=== PATIENT | female | born 2000 | race American Indian/Alaskan Native ===

== ENCOUNTER 2020-08-21 16:39 | Inpatient (IN) | payer MEDICAID ==
[2020-08-21 18:50] LABS: Bilirubin,Urine NEG (Negative); Blood,Urine NEG (Negative); Color,Urine Straw (Yellow); Mucus,Urine FEW /HPF; Protein,Urine <15 mg/dL mg/dL (Negative); RBC,Urine < 1.0 /HPF (0.0-6.0); WBC,Urine < 1.0 /HPF (0.0-6.0)
[2020-08-21 21:10] LABS: Hematocrit 36.3 % (30.3-42.9); Hemoglobin 12.3 gm/dl (10.1-14.3); Mean Corpuscular HGB Conc 34 % (30-34); Mean Corpuscular Volume 86 fl (79-97); Platelet Count 251 K/mm3 (140-440); Red Blood Count 4.23 M/mm3 (3.65-5.03); Red Cell Distribution Width 16.7 % (13.2-15.2)
--- NOTE | 2020-08-21 21:14 | Ultrasound Report ---
ULTRASOUND OBSTETRIC LIMITED ULTRASOUND BIOPHYSICAL PROFILE INDICATION / CLINICAL INFORMATION: well being. Clinical Gestational Age (GA): 40.2 weeks.days COMPARISON: None available. FINDINGS: BREATHING MOVEMENT = 0 GROSS BODY MOVEMENT = 2 TONE = 2 QUALITATIVE AMNIOTIC FLUID VOLUME = 2 TOTAL BIOPHYSICAL SCORE = 6/8 HEART RATE (beats per minute): 161 AMNIOTIC FLUID INDEX (cm) = 11.1 (normal = 7-24 cm) PRESENTATION: Cephalic. ADDITIONAL FINDINGS: None. IMPRESSION: 1. Biophysical Score = 6/8. No breathing movements are identified on this examination. Signer Name: Jovan Pham MD Signed: 08/21/2020 9:10 PM Workstation Name: [id number]
[2020-08-21 21:33] LABS: Alanine Aminotransferase 11 units/L (7-56); Uric Acid 4.2 mg/dL (3.5-7.6)
--- NOTE | 2020-08-21 22:15 | History and Physical Report ---
History of Present Illness Date of examination: 08/21/20 Chief complaint: sent from clinic for elevated BPs History of present illness: 20 yo at 40w2d (WENDY 08/19/20) c/b Anemia, varicella NI presenting from clinic with complaint of extremity swelling and mildly elevated BPs. During tr iage assessment found to have persistently mildly elevated BPs. Denies DANIEL, scotoma, RUQ pain. Reports frequent q3 minute contractions. Denies vaginal bleeding or LOF. +FM, BPP 6/8. PNC labs reviewed, of note GBS neg Past History Past Medical History: no pertinent history Past Surgical History: D&C (elective ) Family/Genetic History: none Social history: no significant social history - Obstetrical History Expected Date of Delivery: 08/19/20 Actual Gestation: 40 Week(s) 2 Day(s) : 2 Para: 0 Induced : 1 Number of Living Children: 0 Medications and Allergies Allergies Allergy/AdvReac Type Severity Reaction Status Date / Time No Known Allergies Allergy Verified 08/21/20 17:30 Review of Systems All systems: negative (expect HPI) - Vital Signs Vital signs: Vital Signs Pulse BP 98 H 132/87 08/21/20 17:27 08/21/20 17:27 Temp Pulse Resp BP Pulse Ox 98.2 F 67 20 125/72 100 08/21/20 17:31 08/21/20 22:03 08/21/20 17:31 08/21/20 21:57 08/21/20 22:03 - Physical Exam Abdomen: Positive: normal appearance, normal bowel sounds, other (gravid) - Obstetrical FHR: category 1 Uterine Contraction Monitor Mode: External Cervical Dilatation: 1 Cervical Effacement Percentage: 40 station: -2 Uterine Contraction Frequency (min): 3 Uterine Contraction Pattern: Regular Results Result Diagrams: 08/21/20 20:40 08/21/20 20:40 Abnormal lab results 08/21/20 08/21/20 Range/Units 20:40 20:40 RDW 16.7 H (13.2-15.2) % Lactate Dehydrogenase 261 H (91-180) units/L All other labs normal. Assessment and Plan - Patient Problems (1) Elevated blood pressure affecting in third trimester, antepartum Current Visit: Yes Status: Acute Plan to address problem: For IOL for elevated blood pressures at term given mild elevated BPs with negative PIH workup --Pitocin per protocol for IOL given until to give ripening agent for frequent contractions, if unable to induce with pitocin, can reconsider ripening agent --Pain management per protocol, ok for epidural --GBS neg --Anticipate
[2020-08-21] MEDS ORDERED: METHYLERGONOVINE MALEATE 0.2 MG/ML VIAL IM PRN (22:16)
[2020-08-21] MEDS ORDERED: ePHEDrine SULFATE 50 MG/1 ML INJ IV PRN (22:16)
[2020-08-21] MEDS ORDERED: AMPICILLIN/NS 2 GM/100 ML 2 GM/100 ML BAG IV ONE ×3 (22:16→22:58)
[2020-08-21] MEDS ORDERED: TERBUTALINE 1 MG/1 ML INJ SUB-Q PRN (22:16)
[2020-08-21] MEDS ORDERED: CARBOPROST TROMETHAMINE 250 MCG/1 ML INJ IM PRN (22:16)
[2020-08-21] MEDS ORDERED: miSOPROStol 200 MCG TAB PR PRN (22:16)
[2020-08-21] MEDS ORDERED: ONDANSETRON 4 MG/2 ML INJ IV PRN (22:16)
[2020-08-21] MEDS ORDERED: fentaNYL 100 MCG/2 ML INJ IV PRN (22:16)
[2020-08-21] MEDS ORDERED: LOPERAMIDE 2 MG CAP PO PRN (22:16)
[2020-08-21] MEDS ORDERED: MINERAL OIL 30 ML ORAL LIQD PO PRN (22:16)
[2020-08-21] MEDS ORDERED: LIDOCAINE (2%) 20 MG/1 ML VIAL 20 ML MDV INFILTRATI ONE (22:16)
[2020-08-21] MEDS ORDERED: OXYTOCIN 10 UNIT/1 ML INJ IM PRN (22:16)
[2020-08-21] MEDS ORDERED: OXYTOCIN DRIP 30 UNITS/500 ML BAG IV SCH ×2 (23:00)
[2020-08-21] MEDS: LACTATED RINGERS 1,000 ML IV SCH (23:08)
[2020-08-22] MEDS ORDERED: AMPICILLIN/NS 1 GM/50 ML 1 GM/50 ML BAG IV SCH (03:00)
[2020-08-22] MEDS: AMPICILLIN/NS 1 GM/50 ML 1 GM/50 ML BAG IV SCH ×3 (03:11→11:25)
[2020-08-22] MEDS: LACTATED RINGERS 1,000 ML IV SCH ×2 (07:56→18:14)
[2020-08-22] MEDS: BUTORPHANOL 2 MG/1 ML INJ IV PRN ×2 (11:20→19:32)
--- NOTE | 2020-08-22 11:27 | Progress Note ---
Assessment and Plan A: IUP @ 40 3/7 Weeks Category I Tracing GBS Negative P: Continue Pitocin Induction Cook' Cervical Ripening Balloon Placed Subjective - Subjective Date of service: 08/22/20 Patient reports: movement normal, contractions Objective - Vital Signs Vital Signs: Vital Signs - 12hr 08/21/20 08/21/20 08/21/20 23:25 23:30 23:34 Temperature Pulse Rate 78 91 H 76 Respiratory Rate Blood Pressure 137/90 O2 Sat by Pulse 100 99 Oximetry 08/21/20 08/21/20 08/21/20 23:35 23:40 23:45 Temperature Pulse Rate 83 74 73 Respiratory Rate Blood Pressure O2 Sat by Pulse 100 99 99 Oximetry 08/21/20 08/21/20 08/22/20 23:50 23:55 00:00 Temperature Pulse Rate 77 78 78 Respiratory Rate Blood Pressure O2 Sat by Pulse 100 100 100 Oximetry 08/22/20 08/22/20 08/22/20 00:05 00:08 00:10 Temperature Pulse Rate 75 79 Respiratory 18 Rate Blood Pressure 137/90 O2 Sat by Pulse 99 100 Oximetry 08/22/20 08/22/20 08/22/20 00:15 00:20 00:25 Temperature Pulse Rate 72 69 69 Respiratory Rate Blood Pressure O2 Sat by Pulse 100 100 100 Oximetry 08/22/20 08/22/20 08/22/20 00:30 00:35 00:36 Temperature Pulse Rate 72 82 84 Respiratory Rate Blood Pressure 166/100 O2 Sat by Pulse 100 95 81 L Oximetry 08/22/20 08/22/20 08/22/20 00:40 00:43 00:45 Temperature Pulse Rate 67 66 65 Respiratory Rate Blood Pressure 133/84 O2 Sat by Pulse 100 100 Oximetry 08/22/20 08/22/20 08/22/20 00:50 00:55 01:00 Temperature Pulse Rate 66 67 70 Respiratory Rate Blood Pressure O2 Sat by Pulse 100 100 100 Oximetry 08/22/20 08/22/20 08/22/20 01:05 01:14 01:43 Temperature Pulse Rate 70 77 75 Respiratory Rate Blood Pressure 124/80 139/93 O2 Sat by Pulse 99 Oximetry 08/22/20 08/22/20 08/22/20 02:13 02:44 03:42 Temperature Pulse Rate 73 66 75 Respiratory Rate Blood Pressure 138/87 152/85 125/85 O2 Sat by Pulse Oximetry 08/22/20 08/22/20 08/22/20 04:14 04:30 04:43 Temperature Pulse Rate 77 73 68 Respiratory Rate Blood Pressure 144/93 137/60 152/96 O2 Sat by Pulse Oximetry 08/22/20 08/22/20 08/22/20 05:14 05:43 05:44 Temperature Pulse Rate 65 72 70 Respiratory Rate Blood Pressure 152/96 155/96 146/98 O2 Sat by Pulse Oximetry 08/22/20 08/22/20 08/22/20 06:52 07:59 08:04 Temperature 98.7 F Pulse Rate 78 75 71 Respiratory 18 Rate Blood Pressure 126/85 127/86 O2 Sat by Pulse 100 100 Oximetry 08/22/20 08/22/20 08/22/20 08:09 09:20 09:21 Temperature Pulse Rate 77 82 80 Respiratory Rate Blood Pressure 127/84 O2 Sat by Pulse 100 96 92 Oximetry 08/22/20 08/22/20 08/22/20 09:25 09:34 09:39 Temperature Pulse Rate 77 94 H 75 Respiratory Rate Blood Pressure O2 Sat by Pulse 100 99 100 Oximetry 08/22/20 08/22/20 08/22/20 09:44 09:48 09:49 Temperature Pulse Rate 69 82 79 Respiratory Rate Blood Pressure O2 Sat by Pulse 100 69 L 97 Oximetry 08/22/20 08/22/20 08/22/20 09:54 09:59 10:00 Temperature Pulse Rate 79 75 77 Respiratory Rate Blood Pressure 124/81 O2 Sat by Pulse 96 100 Oximetry 08/22/20 08/22/20 08/22/20 10:04 10:09 10:14 Temperature Pulse Rate 65 94 H 86 Respiratory Rate Blood Pressure O2 Sat by Pulse 100 100 100 Oximetry 08/22/20 08/22/20 08/22/20 10:19 10:24 10:29 Temperature Pulse Rate 72 81 74 Respiratory Rate Blood Pressure O2 Sat by Pulse 100 100 100 Oximetry 08/22/20 08/22/20 08/22/20 10:30 10:34 10:39 Temperature Pulse Rate 80 93 H 90 Respiratory Rate Blood Pressure 124/77 O2 Sat by Pulse 100 100 Oximetry 08/22/20 08/22/20 08/22/20 10:44 10:49 10:54 Temperature Pulse Rate 94 H 77 90 Respiratory Rate Blood Pressure O2 Sat by Pulse 100 100 100 Oximetry 08/22/20 08/22/20 08/22/20 11:00 11:05 11:10 Temperature Pulse Rate 90 86 87 Respiratory Rate Blood Pressure 126/76 O2 Sat by Pulse 100 100 100 Oximetry 08/22/20 11:15 Temperature Pulse Rate 78 Respiratory Rate Blood Pressure O2 Sat by Pulse 100 Oximetry - Exam Cardiovascular: Regular rate Lungs: Normal air movement Abdomen: Present: normal appearance, soft Uterus: Present: normal, firm, fundal height above umbilicus FHR: category 1 Uterine Contraction Monitor Mode: External Cervical Dilatation: 2 (vtx, intact) Cervical Effacement Percentage: 70 station: -3 Uterine Contraction Frequency (min): 2-3 Uterine Contraction Pattern: Regular Uterine Tone Measurement Phase: Resting Uterine Contraction Intensity: Mild Extremities: normal - Labs Labs: Abnormal Labs 08/21/20 08/21/20 20:40 20:40 RDW 16.7 H Lactate Dehydrogenase 261 H Laboratory Results - last 24 hr 08/21/20 08/21/20 08/21/20 20:40 20:40 20:40 WBC 7.2 RBC 4.23 Hgb 12.3 Hct 36.3 MCV 86 MCH 29 MCHC 34 RDW 16.7 H Plt Count 251 Creatinine 0.6 Estimated GFR > 60 Uric Acid 4.2 AST 21 ALT 11 Lactate Dehydrogenase 261 H Urine Color Urine Turbidity Urine pH Ur Specific [place] Urine Protein Urine Glucose (UA) Urine Ketones Urine Blood Urine Nitrite Urine Bilirubin Urine Urobilinogen Ur Leukocyte Esterase Urine WBC (Auto) Urine RBC (Auto) U Epithel Cells (Auto) Urine Mucus Hep Bs Antigen HIV 1&2 Antibody Rapid HIV P24 Antigen Rubella IgG Antibody Immune Blood Type Antibody Screen 08/21/20 08/21/20 08/21/20 20:40 20:40 20:40 WBC RBC Hgb Hct MCV MCH MCHC RDW Plt Count Creatinine Estimated GFR Uric Acid AST ALT Lactate Dehydrogenase Urine Color Urine Turbidity Urine pH Ur Specific [place] Urine Protein Urine Glucose (UA) Urine Ketones Urine Blood Urine Nitrite Urine Bilirubin Urine Urobilinogen Ur Leukocyte Esterase Urine WBC (Auto) Urine RBC (Auto) U Epithel Cells (Auto) Urine Mucus Hep Bs Antigen Non-reactive HIV 1&2 Antibody Rapid Non react HIV P24 Antigen Non react Rubella IgG Antibody Blood Type O POSITIVE Antibody Screen Negative 08/21/20 Unknown WBC RBC Hgb Hct MCV MCH MCHC RDW Plt Count Creatinine Estimated GFR Uric Acid AST ALT Lactate Dehydrogenase Urine Color Straw Urine Turbidity Clear Urine pH 7.0 Ur Specific [place] 1.005 Urine Protein <15 mg/dl Urine Glucose (UA) Neg Urine Ketones Neg Urine Blood Neg Urine Nitrite Neg Urine Bilirubin Neg Urine Urobilinogen 2.0 Ur Leukocyte Esterase Mod Urine WBC (Auto) < 1.0 Urine RBC (Auto) < 1.0 U Epithel Cells (Auto) 1.0 Urine Mucus Few Hep Bs Antigen HIV 1&2 Antibody Rapid HIV P24 Antigen Rubella IgG Antibody Blood Type Antibody Screen
--- NOTE | 2020-08-22 14:39 | Progress Note ---
Assessment and Plan A: IUP @ 40 3/7 Weeks Category I Tracing Active Labor GBS Negative P: Continue Pitocin Augmentation AROM Subjective - Subjective Date of service: 08/22/20 Patient reports: movement normal Objective - Vital Signs Vital Signs: Vital Signs - 12hr 08/22/20 08/22/20 08/22/20 02:44 03:42 04:14 Temperature Pulse Rate 66 75 77 Respiratory Rate Blood Pressure 152/85 125/85 144/93 O2 Sat by Pulse Oximetry 08/22/20 08/22/20 08/22/20 04:30 04:43 05:14 Temperature Pulse Rate 73 68 65 Respiratory Rate Blood Pressure 137/60 152/96 152/96 O2 Sat by Pulse Oximetry 08/22/20 08/22/20 08/22/20 05:43 05:44 06:52 Temperature Pulse Rate 72 70 78 Respiratory Rate Blood Pressure 155/96 146/98 126/85 O2 Sat by Pulse Oximetry 08/22/20 08/22/20 08/22/20 07:59 08:04 08:09 Temperature 98.7 F Pulse Rate 75 71 77 Respiratory 18 Rate Blood Pressure 127/86 O2 Sat by Pulse 100 100 100 Oximetry 08/22/20 08/22/20 08/22/20 09:20 09:21 09:25 Temperature Pulse Rate 82 80 77 Respiratory Rate Blood Pressure 127/84 O2 Sat by Pulse 96 92 100 Oximetry 08/22/20 08/22/20 08/22/20 09:34 09:39 09:44 Temperature Pulse Rate 94 H 75 69 Respiratory Rate Blood Pressure O2 Sat by Pulse 99 100 100 Oximetry 08/22/20 08/22/20 08/22/20 09:48 09:49 09:54 Temperature Pulse Rate 82 79 79 Respiratory Rate Blood Pressure O2 Sat by Pulse 69 L 97 96 Oximetry 08/22/20 08/22/20 08/22/20 09:59 10:00 10:04 Temperature Pulse Rate 75 77 65 Respiratory Rate Blood Pressure 124/81 O2 Sat by Pulse 100 100 Oximetry 08/22/20 08/22/20 08/22/20 10:09 10:14 10:19 Temperature Pulse Rate 94 H 86 72 Respiratory Rate Blood Pressure O2 Sat by Pulse 100 100 100 Oximetry 08/22/20 08/22/20 08/22/20 10:24 10:29 10:30 Temperature Pulse Rate 81 74 80 Respiratory Rate Blood Pressure 124/77 O2 Sat by Pulse 100 100 Oximetry 08/22/20 08/22/20 08/22/20 10:34 10:39 10:44 Temperature Pulse Rate 93 H 90 94 H Respiratory Rate Blood Pressure O2 Sat by Pulse 100 100 100 Oximetry 08/22/20 08/22/20 08/22/20 10:49 10:54 11:00 Temperature Pulse Rate 77 90 90 Respiratory Rate Blood Pressure 126/76 O2 Sat by Pulse 100 100 100 Oximetry 08/22/20 08/22/20 08/22/20 11:05 11:10 11:15 Temperature Pulse Rate 86 87 78 Respiratory Rate Blood Pressure O2 Sat by Pulse 100 100 100 Oximetry 08/22/20 08/22/20 08/22/20 11:20 11:25 11:30 Temperature Pulse Rate 88 89 107 H Respiratory 20 Rate Blood Pressure O2 Sat by Pulse 98 99 100 Oximetry 08/22/20 08/22/20 08/22/20 11:35 11:40 11:45 Temperature Pulse Rate 108 H 116 H 110 H Respiratory Rate Blood Pressure O2 Sat by Pulse 99 99 99 Oximetry 08/22/20 08/22/20 08/22/20 11:50 11:55 12:00 Temperature Pulse Rate 96 H 89 91 H Respiratory Rate Blood Pressure O2 Sat by Pulse 99 99 100 Oximetry 08/22/20 08/22/20 08/22/20 12:01 12:05 12:10 Temperature Pulse Rate 92 H 89 88 Respiratory Rate Blood Pressure 147/89 O2 Sat by Pulse 100 99 Oximetry 08/22/20 08/22/20 08/22/20 12:15 12:20 12:25 Temperature Pulse Rate 97 H 86 92 H Respiratory Rate Blood Pressure O2 Sat by Pulse 99 99 99 Oximetry 08/22/20 08/22/20 08/22/20 12:30 12:35 12:40 Temperature Pulse Rate 95 H 98 H 113 H Respiratory Rate Blood Pressure O2 Sat by Pulse 100 98 100 Oximetry 08/22/20 08/22/20 08/22/20 12:45 12:50 12:55 Temperature Pulse Rate 87 88 82 Respiratory Rate Blood Pressure O2 Sat by Pulse 99 99 98 Oximetry 08/22/20 08/22/20 08/22/20 13:00 13:05 13:07 Temperature Pulse Rate 87 87 84 Respiratory Rate Blood Pressure 131/86 O2 Sat by Pulse 99 100 Oximetry 08/22/20 08/22/20 08/22/20 13:10 13:15 13:20 Temperature Pulse Rate 89 80 89 Respiratory Rate Blood Pressure O2 Sat by Pulse 100 99 99 Oximetry 08/22/20 08/22/20 08/22/20 13:25 13:30 13:35 Temperature Pulse Rate 88 92 H 89 Respiratory Rate Blood Pressure O2 Sat by Pulse 98 99 99 Oximetry 08/22/20 08/22/20 08/22/20 13:40 13:45 13:50 Temperature Pulse Rate 82 84 91 H Respiratory Rate Blood Pressure O2 Sat by Pulse 99 100 99 Oximetry 08/22/20 08/22/20 08/22/20 13:55 14:00 14:02 Temperature Pulse Rate 82 82 84 Respiratory Rate Blood Pressure 132/91 O2 Sat by Pulse 100 100 Oximetry 08/22/20 08/22/20 08/22/20 14:05 14:10 14:15 Temperature Pulse Rate 83 84 85 Respiratory Rate Blood Pressure O2 Sat by Pulse 100 100 99 Oximetry 08/22/20 08/22/20 08/22/20 14:20 14:22 14:25 Temperature Pulse Rate 89 81 88 Respiratory Rate Blood Pressure 149/95 O2 Sat by Pulse 100 98 Oximetry 08/22/20 14:30 Temperature Pulse Rate 79 Respiratory Rate Blood Pressure O2 Sat by Pulse 100 Oximetry - Exam Breasts: normal Lungs: Normal air movement Abdomen: Present: normal appearance, soft Uterus: Present: normal, firm, fundal height above umbilicus FHR: category 1 Uterine Contraction Monitor Mode: External Cervical Dilatation: 6 (Moderate amount of clear fluid upon AROM at 1433) Cervical Effacement Percentage: 70 station: -1 Uterine Contraction Pattern: Regular Uterine Tone Measurement Phase: Resting Uterine Contraction Intensity: Moderate Extremities: normal - Labs Labs: Abnormal Labs 08/21/20 08/21/20 20:40 20:40 RDW 16.7 H Lactate Dehydrogenase 261 H Laboratory Results - last 24 hr 08/21/20 08/21/20 08/21/20 20:40 20:40 20:40 WBC 7.2 RBC 4.23 Hgb 12.3 Hct 36.3 MCV 86 MCH 29 MCHC 34 RDW 16.7 H Plt Count 251 Creatinine 0.6 Estimated GFR > 60 Uric Acid 4.2 AST 21 ALT 11 Lactate Dehydrogenase 261 H Urine Color Urine Turbidity Urine pH Ur Specific [place] Urine Protein Urine Glucose (UA) Urine Ketones Urine Blood Urine Nitrite Urine Bilirubin Urine Urobilinogen Ur Leukocyte Esterase Urine WBC (Auto) Urine RBC (Auto) U Epithel Cells (Auto) Urine Mucus Hep Bs Antigen HIV 1&2 Antibody Rapid HIV P24 Antigen Rubella IgG Antibody Immune Blood Type Antibody Screen 08/21/20 08/21/20 08/21/20 20:40 20:40 20:40 WBC RBC Hgb Hct MCV MCH MCHC RDW Plt Count Creatinine Estimated GFR Uric Acid AST ALT Lactate Dehydrogenase Urine Color Urine Turbidity Urine pH Ur Specific [place] Urine Protein Urine Glucose (UA) Urine Ketones Urine Blood Urine Nitrite Urine Bilirubin Urine Urobilinogen Ur Leukocyte Esterase Urine WBC (Auto) Urine RBC (Auto) U Epithel Cells (Auto) Urine Mucus Hep Bs Antigen Non-reactive HIV 1&2 Antibody Rapid Non react HIV P24 Antigen Non react Rubella IgG Antibody Blood Type O POSITIVE Antibody Screen Negative 08/21/20 Unknown WBC RBC Hgb Hct MCV MCH MCHC RDW Plt Count Creatinine Estimated GFR Uric Acid AST ALT Lactate Dehydrogenase Urine Color Straw Urine Turbidity Clear Urine pH 7.0 Ur Specific [place] 1.005 Urine Protein <15 mg/dl Urine Glucose (UA) Neg Urine Ketones Neg Urine Blood Neg Urine Nitrite Neg Urine Bilirubin Neg Urine Urobilinogen 2.0 Ur Leukocyte Esterase Mod Urine WBC (Auto) < 1.0 Urine RBC (Auto) < 1.0 U Epithel Cells (Auto) 1.0 Urine Mucus Few Hep Bs Antigen HIV 1&2 Antibody Rapid HIV P24 Antigen Rubella IgG Antibody Blood Type Antibody Screen
[2020-08-22 16:09] LABS: Hematocrit 30.6 % (30.3-42.9); Hemoglobin 10.4 gm/dl (10.1-14.3); Mean Corpuscular HGB Conc 34 % (30-34); Mean Corpuscular Volume 85 fl (79-97); Platelet Count 234 K/mm3 (140-440); Red Blood Count 3.61 M/mm3 (3.65-5.03); Red Cell Distribution Width 16.8 % (13.2-15.2)
[2020-08-22 16:35] LABS: Alanine Aminotransferase 8 units/L (7-56); Uric Acid 4.7 mg/dL (3.5-7.6)
--- NOTE | 2020-08-22 23:18 | Progress Note ---
Assessment and Plan A: IUP @ 40 3/7 Weeks Category I Tracing Protracted Labor GBS Negative P: Continue Pitocin Augmentation IUPC Placed Multiple Maternal Position Changes Prepare for Epidural Anesthesia Dr. Woods Consulted and Agrees to and with Plan of Care Subjective - Subjective Date of service: 08/22/20 Patient reports: movement normal, contractions Objective - Vital Signs Vital Signs: Vital Signs - 12hr 08/22/20 08/22/20 08/22/20 11:15 11:20 11:25 Temperature Pulse Rate 78 88 89 Respiratory 20 Rate Blood Pressure O2 Sat by Pulse 100 98 99 Oximetry 08/22/20 08/22/20 08/22/20 11:30 11:35 11:40 Temperature Pulse Rate 107 H 108 H 116 H Respiratory Rate Blood Pressure O2 Sat by Pulse 100 99 99 Oximetry 08/22/20 08/22/20 08/22/20 11:45 11:50 11:55 Temperature Pulse Rate 110 H 96 H 89 Respiratory Rate Blood Pressure O2 Sat by Pulse 99 99 99 Oximetry 08/22/20 08/22/20 08/22/20 12:00 12:01 12:05 Temperature Pulse Rate 91 H 92 H 89 Respiratory Rate Blood Pressure 147/89 O2 Sat by Pulse 100 100 Oximetry 08/22/20 08/22/20 08/22/20 12:10 12:15 12:20 Temperature Pulse Rate 88 97 H 86 Respiratory Rate Blood Pressure O2 Sat by Pulse 99 99 99 Oximetry 08/22/20 08/22/20 08/22/20 12:25 12:30 12:35 Temperature Pulse Rate 92 H 95 H 98 H Respiratory Rate Blood Pressure O2 Sat by Pulse 99 100 98 Oximetry 08/22/20 08/22/20 08/22/20 12:40 12:45 12:50 Temperature Pulse Rate 113 H 87 88 Respiratory Rate Blood Pressure O2 Sat by Pulse 100 99 99 Oximetry 08/22/20 08/22/20 08/22/20 12:55 13:00 13:05 Temperature Pulse Rate 82 87 87 Respiratory Rate Blood Pressure O2 Sat by Pulse 98 99 100 Oximetry 08/22/20 08/22/20 08/22/20 13:07 13:10 13:15 Temperature Pulse Rate 84 89 80 Respiratory Rate Blood Pressure 131/86 O2 Sat by Pulse 100 99 Oximetry 08/22/20 08/22/20 08/22/20 13:20 13:25 13:30 Temperature Pulse Rate 89 88 92 H Respiratory Rate Blood Pressure O2 Sat by Pulse 99 98 99 Oximetry 08/22/20 08/22/20 08/22/20 13:35 13:40 13:45 Temperature Pulse Rate 89 82 84 Respiratory Rate Blood Pressure O2 Sat by Pulse 99 99 100 Oximetry 08/22/20 08/22/20 08/22/20 13:50 13:55 14:00 Temperature Pulse Rate 91 H 82 82 Respiratory Rate Blood Pressure O2 Sat by Pulse 99 100 100 Oximetry 08/22/20 08/22/20 08/22/20 14:02 14:05 14:10 Temperature Pulse Rate 84 83 84 Respiratory Rate Blood Pressure 132/91 O2 Sat by Pulse 100 100 Oximetry 08/22/20 08/22/20 08/22/20 14:15 14:20 14:22 Temperature Pulse Rate 85 89 81 Respiratory Rate Blood Pressure 149/95 O2 Sat by Pulse 99 100 Oximetry 08/22/20 08/22/20 08/22/20 14:25 14:30 14:35 Temperature Pulse Rate 88 79 87 Respiratory Rate Blood Pressure O2 Sat by Pulse 98 100 100 Oximetry 08/22/20 08/22/20 08/22/20 14:40 14:45 14:50 Temperature 98.5 F Pulse Rate 85 90 83 Respiratory Rate Blood Pressure O2 Sat by Pulse 99 99 99 Oximetry 08/22/20 08/22/20 08/22/20 14:55 15:00 15:05 Temperature Pulse Rate 95 H 80 83 Respiratory Rate Blood Pressure 124/89 O2 Sat by Pulse 100 100 100 Oximetry 08/22/20 08/22/20 08/22/20 15:10 15:15 15:20 Temperature Pulse Rate 79 86 87 Respiratory Rate Blood Pressure O2 Sat by Pulse 100 99 100 Oximetry 08/22/20 08/22/20 08/22/20 15:24 15:25 15:26 Temperature Pulse Rate 78 77 80 Respiratory Rate Blood Pressure 158/102 145/95 O2 Sat by Pulse 100 Oximetry 08/22/20 08/22/20 08/22/20 15:30 15:35 15:40 Temperature Pulse Rate 95 H 78 89 Respiratory Rate Blood Pressure O2 Sat by Pulse 99 100 100 Oximetry 08/22/20 08/22/20 08/22/20 15:43 15:45 15:48 Temperature Pulse Rate 83 80 80 Respiratory Rate Blood Pressure 139/94 O2 Sat by Pulse 85 98 Oximetry 08/22/20 08/22/20 08/22/20 15:50 15:54 15:55 Temperature Pulse Rate 95 H 93 H 102 H Respiratory Rate Blood Pressure O2 Sat by Pulse 100 90 99 Oximetry 08/22/20 08/22/20 08/22/20 16:00 16:03 16:05 Temperature Pulse Rate 93 H 82 91 H Respiratory Rate Blood Pressure 122/75 O2 Sat by Pulse 99 100 Oximetry 08/22/20 08/22/20 08/22/20 16:10 16:15 16:18 Temperature Pulse Rate 104 H 74 84 Respiratory Rate Blood Pressure 134/87 O2 Sat by Pulse 98 75 L Oximetry 08/22/20 08/22/20 08/22/20 16:20 16:25 16:30 Temperature Pulse Rate 103 H 96 H 90 Respiratory Rate Blood Pressure O2 Sat by Pulse 99 99 100 Oximetry 08/22/20 08/22/20 08/22/20 16:33 16:35 16:40 Temperature Pulse Rate 85 81 94 H Respiratory Rate Blood Pressure 131/85 O2 Sat by Pulse 100 100 Oximetry 08/22/20 08/22/20 08/22/20 16:45 16:47 16:50 Temperature Pulse Rate 89 95 H 86 Respiratory Rate Blood Pressure 137/85 O2 Sat by Pulse 100 100 Oximetry 08/22/20 08/22/20 08/22/20 16:55 17:00 17:03 Temperature Pulse Rate 91 H 86 92 H Respiratory Rate Blood Pressure 137/94 O2 Sat by Pulse 100 100 Oximetry 08/22/20 08/22/20 08/22/20 17:05 17:10 17:15 Temperature Pulse Rate 102 H 95 H 84 Respiratory Rate Blood Pressure O2 Sat by Pulse 100 95 100 Oximetry 08/22/20 08/22/20 08/22/20 17:17 17:20 17:25 Temperature Pulse Rate 87 88 89 Respiratory Rate Blood Pressure 131/87 O2 Sat by Pulse 99 100 Oximetry 08/22/20 08/22/20 08/22/20 17:30 17:34 17:35 Temperature Pulse Rate 85 80 83 Respiratory Rate Blood Pressure 147/94 O2 Sat by Pulse 100 99 Oximetry 08/22/20 08/22/20 08/22/20 17:40 17:45 17:47 Temperature Pulse Rate 90 92 H 98 H Respiratory Rate Blood Pressure 133/78 O2 Sat by Pulse 100 100 Oximetry 08/22/20 08/22/20 08/22/20 17:50 17:55 18:00 Temperature Pulse Rate 86 91 H 95 H Respiratory Rate Blood Pressure O2 Sat by Pulse 100 100 96 Oximetry 08/22/20 08/22/20 08/22/20 18:02 18:05 18:10 Temperature Pulse Rate 88 100 H 87 Respiratory Rate Blood Pressure 113/59 O2 Sat by Pulse 100 100 Oximetry 08/22/20 08/22/20 08/22/20 18:15 18:16 18:17 Temperature 99.1 F Pulse Rate 89 76 Respiratory Rate Blood Pressure 152/93 O2 Sat by Pulse 100 Oximetry 08/22/20 08/22/20 08/22/20 18:20 18:23 18:25 Temperature Pulse Rate 83 89 86 Respiratory Rate Blood Pressure O2 Sat by Pulse 100 87 100 Oximetry 08/22/20 08/22/20 08/22/20 18:28 18:30 18:32 Temperature Pulse Rate 83 88 80 Respiratory Rate Blood Pressure 148/92 O2 Sat by Pulse 86 96 Oximetry 08/22/20 08/22/20 08/22/20 18:35 18:40 18:45 Temperature Pulse Rate 92 H 102 H 98 H Respiratory Rate Blood Pressure O2 Sat by Pulse 100 99 100 Oximetry 08/22/20 08/22/20 08/22/20 18:47 18:50 18:53 Temperature Pulse Rate 85 92 H 86 Respiratory Rate Blood Pressure 151/74 O2 Sat by Pulse 99 82 L Oximetry 08/22/20 08/22/20 08/22/20 18:55 19:00 19:02 Temperature Pulse Rate 95 H 94 H 96 H Respiratory Rate Blood Pressure 123/70 O2 Sat by Pulse 100 100 Oximetry 08/22/20 08/22/20 08/22/20 19:15 19:19 19:32 Temperature 98.3 F Pulse Rate 96 H 96 H Respiratory 20 Rate Blood Pressure 124/73 127/74 O2 Sat by Pulse Oximetry 08/22/20 08/22/20 08/22/20 19:48 20:03 20:17 Temperature Pulse Rate 87 91 H 92 H Respiratory Rate Blood Pressure 139/71 133/80 138/81 O2 Sat by Pulse Oximetry 08/22/20 08/22/20 08/22/20 20:33 20:50 21:03 Temperature Pulse Rate 90 96 H 90 Respiratory Rate Blood Pressure 132/68 155/87 146/88 O2 Sat by Pulse Oximetry 08/22/20 08/22/20 08/22/20 21:19 21:33 21:48 Temperature Pulse Rate 94 H 88 100 H Respiratory Rate Blood Pressure 148/85 148/69 143/81 O2 Sat by Pulse Oximetry 08/22/20 08/22/20 08/22/20 22:02 22:18 22:32 Temperature Pulse Rate 94 H 94 H 108 H Respiratory Rate Blood Pressure 135/71 138/63 147/72 O2 Sat by Pulse Oximetry 08/22/20 08/22/20 22:47 23:02 Temperature Pulse Rate 90 86 Respiratory Rate Blood Pressure 145/93 150/73 O2 Sat by Pulse Oximetry - Exam Breasts: normal Cardiovascular: Regular rate Lungs: Normal air movement Abdomen: Present: normal appearance, soft Uterus: Present: normal, firm, fundal height above umbilicus FHR: category 1 Uterine Contraction Monitor Mode: Internal Cervical Dilatation: 7 (leaking a small amount of clear fluid) Cervical Effacement Percentage: 80 station: 0 Uterine Contraction Frequency (min): 2-4 Uterine Contraction Pattern: Regular Uterine Tone Measurement Phase: Resting Uterine Contraction Intensity: Moderate Extremities: normal - Labs Labs: Abnormal Labs 08/21/20 08/21/20 08/22/20 20:40 20:40 15:37 RBC 3.61 L RDW 16.7 H 16.8 H Lactate Dehydrogenase 261 H 08/22/20 15:37 RBC RDW Lactate Dehydrogenase 198 H Laboratory Results - last 24 hr 08/22/20 08/22/20 08/22/20 09:16 15:37 15:37 WBC 7.6 RBC 3.61 L Hgb 10.4 Hct 30.6 MCV 85 MCH 29 MCHC 34 RDW 16.8 H Plt Count 234 Creatinine 0.8 Estimated GFR > 60 Uric Acid 4.7 AST 17 ALT 8 Lactate Dehydrogenase 198 H Coronavirus (PCR) Negative
[2020-08-22] MEDS ORDERED: LACTATED RINGERS 250 ML IV ONE (23:45)
[2020-08-22] MEDS ORDERED: fentaNYL-BUPIV 2 MCG/ML-0.125% 200 MCG/100 ML BAG EPIDURAL SCH (23:45)
[2020-08-22] MEDS ORDERED: diphenhydrAMINE 50 MG/ML VIAL IV PRN (23:51)
[2020-08-22] MEDS ORDERED: NALOXONE 2 MG/2 ML INJ IV PRN (23:51)
[2020-08-22] MEDS ORDERED: NalbUPHINE 10 MG/1 ML INJ IV PRN (23:51)
[2020-08-22] MEDS ORDERED: LACTATED RINGERS 250 ML IV SOLN IV ONE (23:51)
[2020-08-22] MEDS ORDERED: ePHEDrine SULFATE 50 MG/1 ML INJ IV PRN (23:51)
--- NOTE | 2020-08-23 00:21 | Anesthesia Consultation ---
Anesthesia Consult and Med Hx Date of service: 08/23/20 - Airway Anesthetic Teeth Evaluation: Good ROM Head & Neck: Adequate Mental/Hyoid Distance: Adequate Mallampati Class: Class I Intubation Access Assessment: Good - Pulmonary Exam CTA: Yes - Cardiac Exam Cardiac Exam: RRR - Pre-Operative Health Status ASA Pre-Surgery Classification: ASA2 Proposed Anesthetic Plan: Epidural - Pulmonary Hx Smoking: No Hx Asthma: No COPD: No Hx Pneumonia: No Hx Sleep Apnea: No - Cardiovascular System Hx Hypertension: No Hx Heart Attack/AMI: No Hx Angina: No - Central Nervous System Hx Seizures: No Hx Psychiatric Problems: No - Gastrointestinal Hx Gastroesophageal Reflux Disease: No - Endocrine Hx Renal Disease: No Hx End Stage Renal Disease: No Hx Liver Disease: No Hx Insulin Dependent Diabetes: No Hx Non-Insulin Dependent Diabetes: No Hx Hypothyroidism: No Hx Hyperthyroidism: No - Hematic Hx Anemia: No Hx Sickle Cell Disease: No - Other Systems Hx Alcohol Use: No
--- NOTE | 2020-08-23 00:22 | Progress Note ---
Labor Epidural - Labor Epidural Start Time: 00:02 Stop Time: 00:15 Performed by:: LOYDA ARAMBULA Procedure: Patient is requesting epidural for labor and pain. H&P, labs were reviewed. Patient IDed, H&P reviewed, all questions and concerns were answered, and consent was signed. Timeout was performed at bedside. Patient in sitting position. Sterile prep and drape was performed. 3ml of 1% lidocaine skin wheal at L[3]- L [4]. 18-gauge Karen epidural needle was advanced to loss of resistance with air technique 6cm. Negative CSF negative blood. Epidural catheter advanced to [11] centimeters. [negative] Aspiration [negative] test dose. Sterile dressing applied. Patient tolerated procedure.
--- NOTE | 2020-08-23 09:45 | Progress Note ---
Assessment and Plan A: IUP 40 4/7 wks P: continue monitoring Anticipate Subjective - Subjective Date of service: 08/23/20 Principal diagnosis: IUP@ 40 4/7 wks Patient reports: movement normal, contractions Objective - Vital Signs Vital Signs: Vital Signs - 12hr 08/22/20 08/22/20 08/22/20 21:48 22:02 22:18 Temperature Pulse Rate 100 H 94 H 94 H Blood Pressure 143/81 135/71 138/63 O2 Sat by Pulse Oximetry 08/22/20 08/22/20 08/22/20 22:32 22:47 23:02 Temperature Pulse Rate 108 H 90 86 Blood Pressure 147/72 145/93 150/73 O2 Sat by Pulse Oximetry 08/22/20 08/22/20 08/22/20 23:15 23:32 23:47 Temperature 98.7 F Pulse Rate 81 83 Blood Pressure 142/87 144/89 O2 Sat by Pulse Oximetry 08/22/20 08/23/20 08/23/20 23:59 00:01 00:03 Temperature Pulse Rate 95 H 94 H Blood Pressure 142/87 O2 Sat by Pulse 86 100 Oximetry 08/23/20 08/23/20 08/23/20 00:06 00:11 00:12 Temperature Pulse Rate 92 H 99 H 97 H Blood Pressure 134/75 O2 Sat by Pulse 100 100 Oximetry 08/23/20 08/23/20 08/23/20 00:14 00:16 00:18 Temperature Pulse Rate 93 H 92 H 99 H Blood Pressure 142/80 141/78 153/74 O2 Sat by Pulse 97 Oximetry 08/23/20 08/23/20 08/23/20 00:20 00:21 00:22 Temperature Pulse Rate 86 81 76 Blood Pressure 146/85 154/91 O2 Sat by Pulse 100 Oximetry 08/23/20 08/23/20 08/23/20 00:24 00:26 00:27 Temperature Pulse Rate 70 67 77 Blood Pressure 154/90 161/97 135/85 O2 Sat by Pulse 99 Oximetry 08/23/20 08/23/20 08/23/20 00:30 00:31 00:36 Temperature Pulse Rate 65 75 70 Blood Pressure 142/91 O2 Sat by Pulse 100 100 Oximetry 05/20/21 05/20/21 05/20/21 00:41 00:46 00:47 Temperature Pulse Rate 75 69 70 Blood Pressure 155/93 O2 Sat by Pulse 100 100 Oximetry 08/23/20 08/23/20 08/23/20 00:51 00:56 01:01 Temperature Pulse Rate 73 82 68 Blood Pressure 148/87 O2 Sat by Pulse 100 100 100 Oximetry 08/23/20 08/23/20 08/23/20 01:06 01:11 01:15 Temperature 99.1 F Pulse Rate 67 70 Blood Pressure O2 Sat by Pulse 100 100 Oximetry 08/23/20 08/23/20 08/23/20 01:16 01:17 01:21 Temperature Pulse Rate 64 68 66 Blood Pressure 152/92 O2 Sat by Pulse 100 100 Oximetry 08/23/20 08/23/20 08/23/20 01:26 01:30 01:31 Temperature Pulse Rate 63 68 62 Blood Pressure 146/94 O2 Sat by Pulse 100 100 Oximetry 08/23/20 08/23/20 08/23/20 01:36 01:41 01:46 Temperature Pulse Rate 67 65 66 Blood Pressure O2 Sat by Pulse 100 100 100 Oximetry 08/23/20 08/23/20 08/23/20 01:47 01:51 01:56 Temperature Pulse Rate 67 60 64 Blood Pressure 161/95 O2 Sat by Pulse 100 100 Oximetry 08/23/20 08/23/20 08/23/20 02:00 02:01 02:06 Temperature Pulse Rate 66 63 67 Blood Pressure 159/98 O2 Sat by Pulse 100 100 Oximetry 08/23/20 08/23/20 08/23/20 02:11 02:16 02:21 Temperature Pulse Rate 62 61 69 Blood Pressure 146/89 O2 Sat by Pulse 100 100 100 Oximetry 08/23/20 08/23/20 08/23/20 02:23 02:26 02:31 Temperature Pulse Rate 67 70 62 Blood Pressure O2 Sat by Pulse 86 100 100 Oximetry 08/23/20 08/23/20 08/23/20 02:32 02:33 02:36 Temperature Pulse Rate 67 70 64 Blood Pressure 183/107 O2 Sat by Pulse 67 L 100 Oximetry 08/23/20 08/23/20 08/23/20 02:41 02:43 02:46 Temperature Pulse Rate 61 57 L 71 Blood Pressure 167/97 O2 Sat by Pulse 100 100 Oximetry 08/23/20 08/23/20 08/23/20 02:48 02:51 02:56 Temperature Pulse Rate 63 61 66 Blood Pressure 131/79 O2 Sat by Pulse 100 100 Oximetry 08/23/20 08/23/20 08/23/20 03:01 03:06 03:11 Temperature Pulse Rate 64 60 70 Blood Pressure 145/89 O2 Sat by Pulse 99 100 100 Oximetry 08/23/20 08/23/20 08/23/20 03:15 03:16 03:21 Temperature 98.3 F Pulse Rate 68 64 Blood Pressure 144/92 O2 Sat by Pulse 100 100 Oximetry 08/23/20 08/23/20 08/23/20 03:26 03:31 03:32 Temperature Pulse Rate 60 60 62 Blood Pressure 137/88 O2 Sat by Pulse 100 100 Oximetry 08/23/20 08/23/20 08/23/20 03:36 03:41 03:46 Temperature Pulse Rate 67 68 68 Blood Pressure 138/81 O2 Sat by Pulse 100 100 100 Oximetry 08/23/20 08/23/20 08/23/20 03:51 03:56 04:01 Temperature Pulse Rate 65 68 63 Blood Pressure 137/80 O2 Sat by Pulse 100 100 100 Oximetry 08/23/20 08/23/20 08/23/20 04:06 04:11 04:16 Temperature Pulse Rate 63 59 L 61 Blood Pressure O2 Sat by Pulse 100 100 100 Oximetry 08/23/20 08/23/20 08/23/20 04:17 04:21 04:26 Temperature Pulse Rate 60 67 71 Blood Pressure 134/79 O2 Sat by Pulse 100 100 Oximetry 08/23/20 08/23/20 08/23/20 04:31 04:36 04:41 Temperature Pulse Rate 64 59 L 73 Blood Pressure 134/83 O2 Sat by Pulse 100 100 100 Oximetry 08/23/20 08/23/20 08/23/20 04:45 04:46 04:51 Temperature Pulse Rate 57 L 57 L 62 Blood Pressure 136/89 O2 Sat by Pulse 100 100 Oximetry 08/23/20 08/23/20 08/23/20 04:56 05:00 05:01 Temperature Pulse Rate 59 L 62 79 Blood Pressure 140/89 O2 Sat by Pulse 100 100 Oximetry 08/23/20 08/23/20 08/23/20 05:05 05:06 05:11 Temperature Pulse Rate 61 61 62 Blood Pressure O2 Sat by Pulse 94 100 100 Oximetry 08/23/20 08/23/20 08/23/20 05:15 05:16 05:19 Temperature 97.5 F L Pulse Rate 62 66 Blood Pressure 163/95 O2 Sat by Pulse 100 89 Oximetry 08/23/20 08/23/20 08/23/20 05:21 05:26 05:31 Temperature Pulse Rate 64 68 65 Blood Pressure 162/91 O2 Sat by Pulse 100 99 100 Oximetry 08/23/20 08/23/20 08/23/20 05:36 05:41 05:46 Temperature Pulse Rate 67 65 70 Blood Pressure 148/95 O2 Sat by Pulse 100 100 100 Oximetry 08/23/20 08/23/20 08/23/20 05:47 05:51 05:56 Temperature Pulse Rate 73 65 83 Blood Pressure O2 Sat by Pulse 85 100 100 Oximetry 08/23/20 08/23/20 08/23/20 06:01 06:02 06:03 Temperature Pulse Rate 67 69 76 Blood Pressure 137/92 O2 Sat by Pulse 100 88 Oximetry 08/23/20 08/23/20 08/23/20 06:06 06:11 06:16 Temperature Pulse Rate 103 H 78 91 H Blood Pressure 137/91 O2 Sat by Pulse 100 100 100 Oximetry 08/23/20 08/23/20 08/23/20 06:21 06:26 06:31 Temperature Pulse Rate 85 78 77 Blood Pressure 138/97 O2 Sat by Pulse 100 100 100 Oximetry 08/23/20 08/23/20 08/23/20 06:36 06:41 06:45 Temperature Pulse Rate 83 86 81 Blood Pressure 133/90 O2 Sat by Pulse 100 100 Oximetry 08/23/20 08/23/20 08/23/20 06:46 06:51 06:56 Temperature Pulse Rate 84 72 74 Blood Pressure O2 Sat by Pulse 98 100 100 Oximetry 08/23/20 08/23/20 08/23/20 07:00 07:01 07:06 Temperature Pulse Rate 104 H 91 H 82 Blood Pressure 128/95 O2 Sat by Pulse 100 100 Oximetry 08/23/20 08/23/20 08/23/20 07:07 07:11 07:16 Temperature Pulse Rate 98 H 91 H 75 Blood Pressure O2 Sat by Pulse 79 L 53 L 100 Oximetry 05/20/21 05/20/21 05/20/21 07:17 07:19 07:21 Temperature Pulse Rate 89 86 79 Blood Pressure 164/114 O2 Sat by Pulse 76 L 100 Oximetry 08/23/20 08/23/20 08/23/20 07:26 07:31 07:36 Temperature Pulse Rate 73 84 75 Blood Pressure 139/86 O2 Sat by Pulse 100 98 100 Oximetry 08/23/2008/23/08/23/20 07:41 07:45 07:46 Temperature Pulse Rate 78 80 72 Blood Pressure 133/93 O2 Sat by Pulse 100 100 Oximetry 08/23/20 08/23/20 08/23/20 07:51 07:56 08:01 Temperature Pulse Rate 81 80 79 Blood Pressure 139/91 O2 Sat by Pulse 100 100 100 Oximetry 08/23/2008/23/08/23/20 08:06 08:11 08:16 Temperature Pulse Rate 77 88 79 Blood Pressure O2 Sat by Pulse 100 100 100 Oximetry 08/23/20 08/23/20 08/23/20 08:17 08:21 08:26 Temperature Pulse Rate 78 79 102 H Blood Pressure 137/89 O2 Sat by Pulse 100 100 Oximetry 08/23/2008/23/08/23/20 08:30 08:31 08:36 Temperature Pulse Rate 100 H 95 H 94 H Blood Pressure 125/82 O2 Sat by Pulse 98 100 Oximetry 08/23/20 08/23/20 08/23/20 08:41 08:44 08:45 Temperature Pulse Rate 93 H 96 H 87 Blood Pressure 128/88 O2 Sat by Pulse 100 93 Oximetry 08/23/2008/23/08/23/20 08:46 08:51 08:56 Temperature Pulse Rate 82 88 91 H Blood Pressure O2 Sat by Pulse 100 100 100 Oximetry 08/23/2020/08/23/20 09:00 09:01 09:06 Temperature Pulse Rate 91 H 84 98 H Blood Pressure 140/92 O2 Sat by Pulse 100 100 Oximetry 08/23/2020/08/23/20 09:11 09:16 09:21 Temperature Pulse Rate 90 92 H 82 Blood Pressure 141/98 O2 Sat by Pulse 100 100 100 Oximetry 08/23/2008/2308/23/20 09:26 09:31 09:36 Temperature Pulse Rate 92 H 93 H 93 H Blood Pressure 167/106 O2 Sat by Pulse 100 100 100 Oximetry - Exam Breasts: normal Abdomen: Present: normal appearance, normal bowel sounds Vulva: both: normal Uterus: Present: normal FHR: auscultation normal, category 1 Uterine Contraction Monitor Mode: External Cervical Dilatation: 9 Cervical Effacement Percentage: 100 station: -1 Uterine Contraction Pattern: Regular Uterine Tone Measurement Phase: Resting Uterine Contraction Intensity: Strong/Firm Extremities: normal - Labs Labs: Abnormal Labs 08/21/20 08/21/20 08/22/20 20:40 20:40 15:37 RBC 3.61 L RDW 16.7 H 16.8 H Lactate Dehydrogenase 261 H 08/22/20 15:37 RBC RDW Lactate Dehydrogenase 198 H Laboratory Results - last 24 hr 08/22/20 08/22/20 08/22/20 09:16 15:37 15:37 WBC 7.6 RBC 3.61 L Hgb 10.4 Hct 30.6 MCV 85 MCH 29 MCHC 34 RDW 16.8 H Plt Count 234 Creatinine 0.8 Estimated GFR > 60 Uric Acid 4.7 AST 17 ALT 8 Lactate Dehydrogenase 198 H Coronavirus (PCR) Negative
--- NOTE | 2020-08-23 11:57 | Procedure Note ---
Date of procedure: 08/23/20 Pre-op diagnosis: term , labor Post-op diagnosis: other (persistent op) Procedure: This patient was but was having difficulty because the baby was occiput posterior. Therefore we proceeded with a vacuum extraction. The baby was OP she sustained a midline first-degree tear and a right vaginal tear. This was a male with good Apgars. Weight is not known to me at this time. Oropharyngeal suction with the bulb there was no meconium. The midline first-degree tear was repaired with a continuous 3-0 Vicryl the right vaginal wall tear was repaired with a continuous 3-0 Vicryl. The patient tolerated the delivery well she had an epidural anesthetic. Anesthesia: epidural Surgeon: LISA VOGEL Estimated blood loss: other (300) Pathology: none Specimen disposition: discarded Condition: stable Disposition: floor
[2020-08-23] MEDS ORDERED: MAGNESIUM HYDROXIDE (MOM) ORAL LIQD UDC PO PRN (12:16)
[2020-08-23] MEDS ORDERED: PROMETHAZINE 25 MG TAB PO PRN (12:16)
[2020-08-23] MEDS ORDERED: PROMETHAZINE 25 MG RECT SUPP PR PRN (12:16)
[2020-08-23] MEDS ORDERED: LANOLIN/ZINC/DIMETHICONE (LANSINOH) 7 GM TP PRN (12:16)
[2020-08-23] MEDS ORDERED: diphenhydrAMINE 25 MG CAP PO PRN (12:16)
[2020-08-23] MEDS ORDERED: ONDANSETRON 4 MG/2 ML INJ IV PRN (12:16)
[2020-08-23] MEDS ORDERED: WITCH HAZEL/ GLYCERIN PAD TP PRN (12:16)
[2020-08-23] MEDS: IBUPROFEN 600 MG TAB PO SCH (15:05)
[2020-08-24 01:53] LABS: Hemoglobin 8.6 gm/dl (10.1-14.3)
[2020-08-24] MEDS: IBUPROFEN 600 MG TAB PO SCH ×3 (09:26→18:15)
--- NOTE | 2020-08-24 12:34 | Progress Note ---
Assessment and Plan A: day 1 S/P VAVD. Anemia. P: Supplement with iron. Routine care. Anticipate discharge home tomorrow if patient continues to do well. Subjective - Subjective Date of service: 08/24/20 Principal diagnosis: day 1 S/P VAVD Interval history: Doing well. Patient reports: appetite normal, voiding normally, pain well controlled, flatus, ambulating normally, no dizzy ambulation, no nauseated : doing well Objective - Vital Signs Latest vital signs: Vital Signs Temp Pulse Resp BP BP Pulse Ox 08/24/20 08:53 98.1 F 89 19 128/86 100 08/24/20 01:12 98.7 F 69 18 118/78 08/23/20 20:27 98.0 F 105 H 18 120/71 100 08/23/20 16:22 98.2 F 96 H 18 123/81 100 08/23/20 14:45 89 18 144/87 100 08/23/20 14:25 98.5 F 111 H 18 143/85 100 08/23/20 14:02 99.3 F 08/23/20 14:00 115 H 141/74 08/23/20 13:45 97 H 149/79 08/23/20 13:30 96 H 147/81 08/23/20 13:15 100 H 148/76 08/23/20 13:08 86 154/82 08/23/20 12:38 87 100 08/23/20 12:33 78 78 L Intake and Output 08/23/20 08/24/20 08/24/20 23:59 07:59 15:59 Output Total 700 Balance -700 Output: Urine 700 Void 700 Other: Total, Output Amount 700 - Exam Cardiovascular: Present: Regular rate Lungs: Present: Clear to auscultation Abdomen: Present: normal appearance, soft, normal bowel sounds. Absent: distention, tenderness, guarding, rigidity Uterus: Present: normal, firm, fundal height below umbilicus. Absent: bogginess, tenderness Extremities: Present: normal. Absent: tenderness - Labs Labs: Abnormal lab results 08/24/20 Range/Units 01:38 Hgb 8.6 L (10.1-14.3) gm/dl Hct 25.0 L (30.3-42.9) %
--- NOTE | 2020-08-24 15:06 | Post Anesthesia Evaluation ---
- Post Anesthesia Evaluation Patient Participated: Yes Airway Patent: Yes Stable Respiratory Function: Yes Nausea/Vomiting: No Temp > 96.8F: Yes Pain Manageable: Yes Adequeate Hydration: Yes Anesthesia Complications: No Block Receding Appropriately: Yes
[2020-08-25] MEDS: FERROUS SULFATE 325 MG TAB PO SCH ×2 (05:52→09:54)
--- NOTE | 2020-08-25 06:32 | Progress Note ---
Assessment and Plan A: day 2 S/P VAVD. Anemia. P: Discharge patient home today. Discussed with patient discharge instructions and warning signs. Advised patient to take her vitamins and iron supplements at home. Advised patient to avoid IC and lifting. Follow up at [facility] office in 2 days. Patient voiced understanding of instructions. Subjective - Subjective Date of service: 08/25/20 Principal diagnosis: day 2 S/P VAVD Interval history: Doing well. Desires discharge home today. Patient denies headache, chest pain, cough, shortness of breath, leg pain, visual disturbance, nausea or vomiting. Reports small amount of lochia. Patient reports: appetite normal, voiding normally, pain well controlled, flatus, ambulating normally, no dizzy ambulation, no nauseated : doing well Objective - Vital Signs Latest vital signs: Vital Signs Temp Pulse Resp BP Pulse Ox 08/25/20 00:00 98.6 F 78 16 105/77 08/24/20 17:59 97.8 F 84 19 107/56 100 08/24/20 08:53 98.1 F 89 19 128/86 100 Intake and Output 08/24/20 08/24/20 08/25/20 15:59 23:59 07:59 Intake Total 800 400 600 Balance 800 400 600 Intake: Oral 600 300 Intake, Free Water 200 100 600 Other: Total, Intake Amount 300 300 # Voids Void 1 1 1 - Exam Cardiovascular: Present: Regular rate Lungs: Present: Clear to auscultation Abdomen: Present: normal appearance, soft, normal bowel sounds. Absent: distention, tenderness, guarding, rigidity Uterus: Present: normal, firm, fundal height below umbilicus. Absent: bogginess, tenderness Extremities: Present: normal. Absent: tenderness, edema
--- NOTE | 2020-08-25 06:42 | Discharge Summary ---
Providers - Providers Date of Admission: 08/21/20 22:16 Date of discharge: 08/25/20 Attending physician: SHANTI RAMOS JR, MD Primary care physician: SHANTI RAMOS JR, MD Hospitalization Reason for admission: induction of labor Delivery: vacuum extraction Laceration: 2nd degree Other procedures: none complications: none Discharge diagnosis: IUP at term delivered [place] baby: male Pertinent studies: Labs Hospital course: Stable hospital course Condition at discharge: Good Disposition: DC-[id number] TO HOME OR SELFCARE - Discharge Diagnoses (1) Term delivered Status: Acute (2) Anemia Status: Acute Plan - Provider Discharge Summary Activity: routine, no sex for 6 weeks, no heavy lifting 4 weeks, no strenuous exercise Diet: routine Instructions: routine Additional instructions: Continue taking her vitamin and iron supplements at home. Avoid sexual intercourse and lifting. Follow up at [facility] office in 2 days. Call your doctor immediately for: * Fever > 100.5 * Heavy vaginal bleeding ( >1 pad per hour) * Severe persistent headache * Shortness of breath * Reddened, hot, painful area to leg or breast - Follow up plan Follow up: SHANTI RAMOS JR, MD [Primary Care Provider] - 48 Hours
[2020-08-25] MEDS: IBUPROFEN 600 MG TAB PO SCH (09:53)
[2020-08-25 12:14] VITALS: BP 129/89
== END 2020-08-25 12:50 | disposition home or self-care (01) | DRG 775 ==
LOC: APU 16:39 → TRG 16:39 → LD 22:16 → TRG 22:16 → OB 08-23 14:31
PROVIDERS: ADMIT Obstetrics & Gynecology; ATTEND Obstetrics & Gynecology
PROC: 10D07Z6 Extraction of Products of Conception, Vacuum, Via Natural or Artificial Opening (ICD-10-PCS; principal; 2020-08-23)
PROC: 0KQM0ZZ Repair Perineum Muscle, Open Approach (ICD-10-PCS; 2020-08-23)
PROC: 10907ZC Drainage of Amniotic Fluid, Therapeutic from Products of Conception, Via Natural or Artificial Opening (ICD-10-PCS; 2020-08-23)
PROC: 0U7C7ZZ Dilation of Cervix, Via Natural or Artificial Opening (ICD-10-PCS; 2020-08-23)
PROC: 10H07YZ Insertion of Other Device into Products of Conception, Via Natural or Artificial Opening (ICD-10-PCS; 2020-08-23)
PROC: 3E0R3BZ Introduction of Anesthetic Agent into Spinal Canal, Percutaneous Approach (ICD-10-PCS; 2020-08-23)
PROC: 00HU33Z Insertion of Infusion Device into Spinal Canal, Percutaneous Approach (ICD-10-PCS; 2020-08-23)
DX: O99.02 Anemia complicating childbirth (principal); Z3A.40 40 weeks gestation of pregnancy; Z37.0 Single live birth; O70.1 Second degree perineal laceration during delivery; Z20.822 Contact with and (suspected) exposure to COVID-19; D62 Acute posthemorrhagic anemia
CPT/HCPCS: 36415; 59025; 76815; 76819; 81001; 82565; 83615; 84450; 84460; 84550; 85014; 85018; 85027; 86706; 86762; 86850; 86900; 86901; 87806; 99211; G0378; G0463; J0290; J0595; J2590; J3010; J7120; U0003